=== PATIENT | female | born 1955 | race Caucasian/White ===

== ENCOUNTER → 2016-11-28 | Outpatient (CLI) | payer OTHER ==
[~2016-11-28] MED LIST: ALPRAZOLAM0.5 MG; CALCIUM500 M1; CLOTRIMAZOLE-BE30 M1; FLEXERIL; FORTEO2.4 ML; PERCOCET; PREVIDENT56 G1; PRILOSEC
--- NOTE | ~2016-11-28 | US24 ---
[facility] A Service of [facility] RADIOLOGY TEXT RESULTS PATIENT: ORQUIDEA TAPIA LOCATION: [facility] : 53 UNIT #: [id number] AGE: [address]: GINA SHETTY APRN SEX: F ORDER DR: [id number] [facility] [address] [place], [place] [address] [id number] O MR#: [id number] Acc #: [id number] NAME: ORQUIDEA TAPIA : 1955 SEX: F STUDY DATE/TIME: 11/28/2016 14:01 UNIT: [facility] ROOM: STUDY DESCRIPTION: US Breast Unilateral Attending Physician: Chelsea Shetty M.D. Referring Physician: Chelsea Shetty M.D. Ordering Physician: Chelsea Shetty M.D. Primary Care Physician: Haroldo No M.D. MEDICAL IMAGING REPORT This report is preliminary unless electronic signature is present EXAM Left breast ultrasound 11/28/2016 COMPARISON Left diagnostic mammogram on the same date and effective baseline screening mammogram dated November 13, 2016. HISTORY 61-year-old female with persistent oval circumscribed left breast mass on diagnostic mammography today. Additional imaging evaluation with ultrasound was indicated. FINDINGS/IMPRESSION Please see separately dictated report of left diagnostic mammography on the same date for full sonographic findings in the left breast today as well as final impression and recommendations. BIRADS: 2 - Benign finding Dictated by... Carlos Rojas M.D. THIS IS AN ELECTRONICALLY VERIFIED REPORT Carlos Rojas M.D. at 12/01/2016 6:43 PM Adeline TD: 11/28/2016 16:28 JOB #: [id number] MEDICAL IMAGING REPORT COPY
--- NOTE | ~2016-11-28 | MY7 ---
[facility] A Service of [facility] RADIOLOGY TEXT RESULTS PATIENT: ORQUIDEA TAPIA LOCATION: [facility] : 53 UNIT #: [id number] AGE: [address]: GINA SHETTY APRN SEX: F ORDER DR: [id number] [facility] [address] [place], [place] [address] [id number] O MR#: [id number] Acc #: [id number] NAME: ORQUIDEA TAPIA : 1955 SEX: F STUDY DATE/TIME: 11/28/2016 13:45 UNIT: [facility] ROOM: STUDY DESCRIPTION: MY Mammogram Dx Dig Lt Attending Physician: Chelsea Shetty M.D. Referring Physician: Chelsea Shetty M.D. Ordering Physician: Chelsea Shetty M.D. Primary Care Physician: Haroldo No M.D. MEDICAL IMAGING REPORT This report is preliminary unless electronic signature is present EXAM Left digital diagnostic mammogram COMPARISON Effective baseline screening mammogram dated 11/13/2016. INDICATIONS 61-year-old female with a suspected 6 o'clock left breast mass. Further imaging evaluation was recommended. FINDINGS Spot compression CC spot compression MLO and full field ML views of the left breast were obtained. The finding of initial concern persists and is consistent with an oval circumscribed mass measuring approximately 3 mm x 4 mm x 3 mm located approximately 3 cm from the nipple in the 6 o'clock left breast at the junction of the middle and posterior thirds. Sonographic evaluation was performed for further characterization. This demonstrates corresponding simple cyst in the 6 o'clock position 4 cm from the nipple, measuring 4 mm x 3 mm x 3 mm. Incidentally there is a separate simple cyst seen more superficially in the 6 o'clock left breast 4 cm from the nipple which does not correspond to the mammographic finding. IMPRESSION 1. No mammographic or sonographic evidence of malignancy in the left breast. The finding of initial concern is consistent with a simple cyst. There is incidental note of a separate simple cyst on sonography today. Continued annual screening mammography and clinical breast exam are recommended. Findings and recommendations were discussed with the patient upon termination of today's exam. Patients over the age of 40 are entered into a reminder system with target due date for the next mammogram. A result letter will also be sent to the patient. [facility] A Service of [facility] RADIOLOGY TEXT RESULTS PATIENT: ORQUIDEA TAPIA LOCATION: [facility] #: [id number] : 53 UNIT #: [id number] AGE: [address]: GINA SHETTY DIRECTOR SURFACE TRANSPORTATION SEX: F ORDER DR: BIRADS: 2, benign findings. Dictated by... Carlos Rojas M.D. THIS IS AN ELECTRONICALLY VERIFIED REPORT Carlos Rojas M.D. at 12/01/2016 6:50 PM TOI/jocelyn TD: 11/28/2016 16:41 JOB #: [id number] MEDICAL IMAGING REPORT COPY
== END | disposition home or self-care (01) ==
LOC: CMAM 13:01
DX: N63 Unspecified lump in breast (principal)
CPT/HCPCS: 76641; G0206

== ENCOUNTER → 2017-01-10 | Outpatient (CLI) | payer OTHER ==
[2017-01-10 12:40] LABS: BASOPHIL# 0.1 X10e3 (0-0.3); BASOPHIL% 1.5 % (0-2.5); EOSINOPHIL# 0.2 X10e3 (0-0.7); EOSINOPHIL% 2.4 % (0.0-7.0); HEMOGLOBIN 12.5 gm/dL (12.0-16.0); LYMPHOCYTE# 3.2 X10e3 (1.0-3.5); LYMPHOCYTE% 40.3 % (17.0-45.0); MEAN CELL VOLUME 91.1 FL (83-96); MEAN CORPUSCULAR HGB CONC 32.9 g/dL (30-36); MEAN PLATELET VOLUME 8.7 FL (6.5-11.5); MONOCYTE# 0.4 X10e3 (0-1.0); MONOCYTE% 5.5 % (3.0-12.0); NEUTROPHIL% 50.3 % (40-75); PLATELET COUNT 275 X10e3 (140-420); RED BLOOD COUNT 4.17 X10e (3.90-5.30); RED CELL DISTRIBUTION WIDTH 12.9 % (11.0-15.5); WHITE BLOOD COUNT 7.9 X10e3 (4.0-10.5)
[2017-01-10 12:42] LABS: DIFF IND NO
[2017-01-10 13:19] LABS: ALBUMIN SERUM 4.2 g/dL (3.5-5.0); BILIRUBIN,TOTAL 0.8 mg/dL (0.2-2.0); BUN/CREATININE RATIO 36.66; CALCIUM SERUM 9.8 mg/dL (8.4-10.2); CREATININE SERUM 0.6 mg/dL (0.6-1.4); GLOM FILT RATE Estimated 97.7 mL/min (>60); PROTEIN TOTAL SERUM 7.1 g/dL (6.0-8.3)
[2017-01-12 19:35] LABS: MYELOPEROXIDASE AB (PNL) <1.0 AI (<1.0); PROTEINASE-3 AB (PNL) <1.0 AI (<1.0)
[2017-01-13 23:50] LABS: ANA SCREEN Positive (Negative); ANA TITER COMMENT Has been added (()); NUCLEAR PATTERN (ANA) Centromere (())
== END | disposition home or self-care (01) ==
LOC: CLAB 11:25
DX: L88 Pyoderma gangrenosum (principal)
CPT/HCPCS: 36415; 80053; 85025; 86021; 86038; 86039; 86146; 86147; 86148; 86430

== ENCOUNTER 2017-06-06 13:16 | Emergency (ER) | payer OTHER ==
--- NOTE | ~2017-06-06 | CR281 ---
[facility] A Service of [facility] RADIOLOGY TEXT RESULTS PATIENT: ORQUIDEA TAPIA LOCATION: SED : 53 UNIT #: [id number] AGE: [address]: Teodora Gutierrez SEX: F ORDER DR: [id number] [address] [address] [id number] E MR#: [id number] Acc #: [id number] NAME: ORQUIDEA TAPIA : 1955 SEX: F STUDY DATE/TIME: 06/06/2017 13:58 UNIT: SED ROOM: STUDY DESCRIPTION: CR Wrist Min 3 View Lt Attending Physician: Teodora Gutierrez Pa-C Ordering Physician: Staff Doctor Not On Primary Care Physician: Haroldo No M.D. MEDICAL IMAGING REPORT This report is preliminary unless electronic signature is present. EXAM Left wrist 3 views 06/06/2017 1358 hours CLINICAL HISTORY Patient tripped and fell yesterday and grabbed something with left arm when falling. Pain in the forearm, wrist and hand. COMPARISON None. FINDINGS AP, lateral and oblique views demonstrate mild joint space loss and spurring at the radiocarpal joint with moderate spurring at the first carpometacarpal joint suggesting osteoarthritis. There is suggestion of separation of the scaphoid and lunate measuring up to 5 mm which could be indicative of ligamentous injury at the scapholunate ligament. There is chondrocalcinosis and mild calcification of the triangular fibrocartilage likely chronic. IMPRESSION 1. No acute fracture or dislocation. 2. 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 3. 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 4. The scapholunate distance measures 5 mm raising question of ligamentous injury. Dictated by... Indira Steele M.D. THIS IS AN ELECTRONICALLY VERIFIED REPORT [facility] A Service of [facility] RADIOLOGY TEXT RESULTS PATIENT: ORQUIDEA TAPIA LOCATION: [facility] : 53 UNIT #: [id number] AGE: [address]: Teodora Gutierrez SEX: F ORDER DR: Indira Steele M.D. at 06/07/2017 11:08 AM PENELOPE/sandra TD: 06/07/2017 07:25 JOB #: [id number] MEDICAL IMAGING REPORT Page 1 of 1
--- NOTE | ~2017-06-06 | CR132 ---
[facility] A Service of [facility] RADIOLOGY TEXT RESULTS PATIENT: ORQUIDEA TAPAI LOCATION: [facility] : 53 UNIT #: [id number] AGE: [address]: Teodora Gutierrez SEX: F ORDER DR: [id number] [address] [address] [id number] E MR#: [id number] Acc #: [id number] NAME: ORQUIDEA TAPIA : 1955 SEX: F STUDY DATE/TIME: 06/06/2017 13:58 UNIT: SED ROOM: STUDY DESCRIPTION: CR Forearm 2 View Lt Attending Physician: Teodora Gutierrez Pa-C Ordering Physician: Staff Doctor Not On Primary Care Physician: Haroldo No M.D. MEDICAL IMAGING REPORT This report is preliminary unless electronic signature is present. EXAM Left forearm, 2 views; 06/06/2017, 1358 hours. CLINICAL HISTORY 61-year-old woman tripped and fell and grabbed something while falling yesterday. Pain in the forearm, hand and wrist. COMPARISON None. FINDINGS AP and lateral views of the radius and ulna demonstrate no definite fracture. There is degenerative change at the radiocarpal joint. IMPRESSION No fracture of the radius or ulna. Dictated by... Indira Steele M.D. THIS IS AN ELECTRONICALLY VERIFIED REPORT Indira Steele M.D. at 06/07/2017 11:08 AM PENELOPE/kimi TD: 06/06/2017 20:35 JOB #: [id number] MEDICAL IMAGING REPORT Page 1 of 1
--- NOTE | ~2017-06-06 | CR141 ---
[facility] A Service [facility] RADIOLOGY TEXT RESULTS PATIENT: ORQUIDEA TAPIA LOCATION: [facility] : 53 UNIT #: [id number] AGE: [address]: Teodora Gutierrez SEX: F ORDER DR: [id number] [address] [address] [id number] E MR#: [id number] Acc #: [id number] NAME: ORQUIDEA TAPIA : 1955 SEX: F STUDY DATE/TIME: 06/06/2017 UNIT: SED ROOM: STUDY DESCRIPTION: CR Hand Min 3 Views Lt Attending Physician: Teodora Gutierrez Pa-C Ordering Physician: Er Physicians Primary Care Physician: Haroldo No M.D. MEDICAL IMAGING REPORT This report is preliminary unless electronic signature is present. EXAM Left hand 3 views 06/06/2017 1358 hours HISTORY Patient tripped and fell, grabbed onto something. Pain in the arm and hand and wrist since yesterday. COMPARISON None. FINDINGS AP, lateral and oblique views of the hand demonstrate osteoarthritic degenerative change at the DIP joints. There is osteoarthritis at the first carpometacarpal joint. No fracture or dislocation. IMPRESSION Osteoarthritis at the DIP joints and the first carpometacarpal joint. No fracture or dislocation. Dictated by... Indira Steele M.D. THIS IS AN ELECTRONICALLY VERIFIED REPORT Indira Steele M.D. at 06/07/2017 11:08 AM SMM/pcl TD: 06/06/2017 20:27 JOB #: [id number] MEDICAL IMAGING REPORT [facility] A Service [facility] RADIOLOGY TEXT RESULTS PATIENT: ORQUIDEA TAPIA LOCATION: [facility] : 53 UNIT #: [id number] AGE: [address]: Teodora Gutierrez SEX: F ORDER DR: Page 1 of 1
[2017-06-06] MEDS ORDERED: ALPRAZOLAM0.5 MG (13:38)
[2017-06-06] MEDS ORDERED: PRILOSEC (13:39)
[2017-06-06] MEDS ORDERED: CLOTRIMAZOLE-BE30 M1 (13:39)
[2017-06-06] MEDS ORDERED: PERCOCET (13:39)
[2017-06-06] MEDS ORDERED: CALCIUM500 M1 (13:39)
[2017-06-06] MEDS ORDERED: FLEXERIL (13:39)
[2017-06-06] MEDS ORDERED: PREVIDENT56 G1 (13:40)
[2017-06-06] MEDS ORDERED: FORTEO2.4 ML (13:40)
== END 2017-06-06 15:02 | disposition home or self-care (01) ==
LOC: SED 13:16
DX: S63.502A Unspecified sprain of left wrist, initial encounter (principal); X50.1XXA Overexertion from prolonged static or awkward postures, initial encounter; Y92.009 Unspecified place in unspecified non-institutional (private) residence as the place of occurrence of the external cause; F17.200 Nicotine dependence, unspecified, uncomplicated
CPT/HCPCS: 29125; 73090; 73110; 73130; 99283